=== PATIENT | female | born 1950 | race Caucasian/White ===

== ENCOUNTER 2018-01-10 21:12 | Emergency (ER) | payer MEDICARE, SELFPAY ==
[2018-01-10 21:28] VITALS: BP 116/79; PULSE 112; RESP 18; TEMP 36.6; O2SAT 96; BMI 20.9
--- NOTE | 2018-01-10 21:33 | ED.BACK ---
HPI - Back Pain/Injury General Chief Complaint: Back Pain/Injury Stated Complaint: BACK PAIN S/P FALL Time Seen by Provider: 01/10/18 21:33 Source: patient and family Mode of arrival: ambulatory Limitations: no limitations History of Present Illness HPI Narrative: patient is a 67-year-old female brought in with family member for back/ side/abdominal pain. Patient states that earlier this week she had 2 falls. She states that she slipped on the floor and fell. She states that the 2nd 1 she did hit her head but had no loss of consciousness. She states that since these falls she has had pain on her sides and in her abdomen. And some back pain. Has not tried anything for this prior to arrival. She came in because her son who is a high school coordinator told her that she needed a CT scan of her head and x-rays of her back. She states that she has had problems walking since the fall secondary to the pain. Related Data Home Medications Medication Instructions Recorded Confirmed No Known Home Medications 01/10/18 01/10/18 Review of Systems Constitutional Denies chills, Denies fatigue, Denies fever(s), Denies frequent falls, Denies headache(s) and Denies malaise Eyes Denies diplopia and Denies loss of vision ENT Ears, Nose, Mouth, and Throat: Denies vertigo, Denies dizziness, Denies headache(s) and Denies neck pain Cardiovascular Denies chest pain, Denies syncope, Denies rapid heart rate, Denies edema, Denies irregular heart rhythm, Denies palpitations and Denies dyspnea Respiratory Denies cough and Denies dyspnea Gastrointestinal Gastrointestinal: Denies abdominal pain, Denies change in stool character, Denies constipation, Denies nausea and Denies vomiting Genitourinary Denies dysuria and Denies vaginal discharge Musculoskeletal Reports back pain, Denies myalgias, Denies arthralgias and Denies neck pain Integumentary/Breasts Denies lesions and Denies rash Neurologic Denies vertigo, Denies dizziness, Denies syncope, Denies frequent falls, Denies headache(s), Denies focal weakness and Denies loss of vision Endocrine Denies fatigue and Denies palpitations Hematologic/Lymphatic Denies easy bleeding and Denies easy bruising [facility] Medical History Healthy adult (Acute) Surgical History No pertinent past surgical history (Acute) Social History Smoking Status: Never smoker Exam Initial Vital Signs Initial Vital Signs: Vital Signs Temperature 97.9 F 01/10/18 21:28 Pulse Rate 112 H 01/10/18 21:28 Respiratory Rate 18 01/10/18 21:28 Blood Pressure 116/79 01/10/18 21:28 Pulse Oximetry 96 01/10/18 21:28 Const General: cooperative, comfortable, well groomed and No acute distress Orientation: alert, awake and oriented x3 HENMT Head: normal to inspection, normocephalic and atraumatic Nose: external nose normal Face and sinus: normal facial exam Mouth: oral mucosae normal Eyes Sclera: scleral abnormality bilaterally ( Jaundiced) Resp Effort & Inspection: normal respiratory effort Auscultation: clear to auscultation bilaterally Cardio Rate: tachycardic Rhythm: abnormal rhythm irregularly irregular Heart Sounds: no murmurs Pulses: radial pulses present GI Inspection: non-distended Palpation: soft, No firm and No tender Back/Spine/Pelvis Cervical Spine: No cervical muscular tenderness, No cervical spasm and No cervical spinal tenderness Thoracic/Lumbar Spine: No paraspinal tenderness, No thoraco-lumbar spasm, No thoracic spinal tenderness and No lumbar spinal tenderness Sacroiliac Joints: nontender Skin General: jaundice Wounds: no wounds Neuro General: alert, awake and oriented x3 Extrem General: normal to inspection, full ROM and capillary refill normal Psych Appearance: grossly normal and well kempt Course Orders Ordered: ED Orders 01/10/18 21:38 EKG-12 Lead Stat 01/10/18 21:44 Complete Blood Count AUTO DIFF Stat Comprehensive Metabolic Panel Stat Lipase Stat Partial Thromboplastin Time Stat Pathologist Review (for CBC) Stat Prothrombin Time INR Stat Thyroid Stimulating Hormone Stat Troponin I Stat 01/10/18 22:10 CT head/brain wo con Stat XR lumbar spine 2-3V Stat Discontinued Medications Acetaminophen (Tylenol) 650 mg PO NOW ONE Stop: 01/11/18 01:07 Last Admin: 01/11/18 01:11 Dose: 650 mg Vital Signs - 8 hr 01/10/18 21:28 01/11/18 01:27 Temperature 97.9 F 98.1 F Pulse Rate 112 H 106 H Respiratory Rate 18 18 Blood Pressure 116/79 117/80 Pulse Oximetry 96 97 MDM - Back Pain/Injury Lab Data Attestation: I reviewed the patient's lab results. Result diagrams: 01/10/18 21:44 01/10/18 21:44 Lab Results 01/10/18 01/10/18 01/10/18 Range/Units 21:44 21:44 21:44 WBC 8.0 (4.5-11.0) X10^3/uL RBC 3.07 L (4.0-5.2) X10^6/uL Hgb 10.9 L (12.0-16.0) g/dL Hct 28.5 L (36-46) % MCV 93.1 (80-100) fL MCH 35.6 H (26-34) PG MCHC 38.3 H (30-36) % RDW 18.3 H (11.6-14.8) % Plt Count 127 L (150-400) X10^3/uL Neut % (Auto) 70.0 (50-75) % Lymph % (Auto) 20.8 L (25-40) % [place] % (Auto) 7.4 (3-14) % Eos % (Auto) 0.7 L (2-4) % Baso % (Auto) 1.1 (0-2) % Neut # (Auto) 5600 (2097-9333) /uL Platelet Estimate Decreased on smear RBC Morphology See below Polychromasia 2+ H Spherocytes 3+ H PT 12.3 (10.1-12.7) SECONDS INR 1.1 (0.9-1.3) APTT 35 (26.4-36.2) SECONDS Sodium 144 (137-145) mmol/L Potassium 3.3 L (3.4-5.1) mmol/L Chloride 100 (98-107) mmol/L Carbon Dioxide 30 (22-32) mmol/L BUN 23 H (7-17) mg/dL Creatinine 0.70 (0.52-1.04) mg/dL Estimated GFR > 60.0 (>60) mL/min BUN/Creatinine Ratio 32.9 H (6-22) Glucose 168 H (80-110) mg/dL Calcium 9.7 (8.4-10.2) mg/dL Total Bilirubin 8.8 H (0.2-1.3) mg/dL AST 19 (14-36) IU/L ALT 24 (9-52) IU/L Alkaline Phosphatase 52 (38-126) U/L Troponin I < 0.012 (0.01-0.034) ng/mL Total Protein 7.7 (6.3-8.2) g/dL Albumin 4.7 (3.5-5.0) g/dL Globulin 3.0 (1.7-4.1) g/dL Albumin/Globulin Ratio 1.6 (1.0-2.8) Lipase 67 (23-300) U/L TSH (0.47-4.68) uIU/mL 01/10/18 Range/Units 21:44 WBC (4.5-11.0) X10^3/uL RBC (4.0-5.2) X10^6/uL Hgb (12.0-16.0) g/dL Hct (36-46) % MCV (80-100) fL MCH (26-34) PG MCHC (30-36) % RDW (11.6-14.8) % Plt Count (150-400) X10^3/uL Neut % (Auto) (50-75) % Lymph % (Auto) (25-40) % [place] % (Auto) (3-14) % Eos % (Auto) (2-4) % Baso % (Auto) (0-2) % Neut # (Auto) (2880-2910) /uL Platelet Estimate RBC Morphology Polychromasia Spherocytes PT (10.1-12.7) SECONDS INR (0.9-1.3) APTT (26.4-36.2) SECONDS Sodium (137-145) mmol/L Potassium (3.4-5.1) mmol/L Chloride (98-107) mmol/L Carbon Dioxide (22-32) mmol/L BUN (7-17) mg/dL Creatinine (0.52-1.04) mg/dL Estimated GFR (>60) mL/min BUN/Creatinine Ratio (6-22) Glucose (80-110) mg/dL Calcium (8.4-10.2) mg/dL Total Bilirubin (0.2-1.3) mg/dL AST (14-36) IU/L ALT (9-52) IU/L Alkaline Phosphatase (38-126) U/L Troponin I (0.01-0.034) ng/mL Total Protein (6.3-8.2) g/dL Albumin (3.5-5.0) g/dL Globulin (1.7-4.1) g/dL Albumin/Globulin Ratio (1.0-2.8) Lipase (23-300) U/L TSH 9.76 H (0.47-4.68) uIU/mL Imaging Data CT scan - head: Radiologist's impression: no acute intracranial process identified. Lumbar spine x-ray: Radiologist's impression: vertebral body height loss between 25 and 30% involving L2 which she exhibits superior endplate deformity and lucency suggesting acute compression fracture. No retropulsion. ECG Data Attestation: I personally reviewed and interpreted this ECG as follows: Prior ECG tracings: not available for review Interpretation: atrial fibrillation ventricular rate of 113 Normal axis normal QRS Nonspecific ST T wave changes MDM Narrative Medical decision making narrative: patient here with reported side and abdominal and back pain after what appears to be a mechanical fall couple days ago. X-rays of her lumbar spine do show a compression fracture of L2 vertebrae. She is not tender to palpation on her back over this area. All of her pain seems to be in her flanks. we did discuss her symptoms. I informed her that the head CT would be to evaluate for a fracture or intracranial bleed or another cause of her falling to include a intracranial mass. Informed her that we do not diagnose concussions off of a head CT. After this discussion she did opt to have a head CT. Patient also with other medical problems that she did not come in for today. She is currently in atrial fibrillation with RVR. She states she has never been told this in the past. She is asymptomatic from this. I did tell her that the falls a couple days ago could be from atrial fibrillation in her heart rate being fast. Patient is also visibly jaundiced and also with scleral icterus. She states that she has a blood disorder that makes her like this occasionally. 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 She carries no diagnosis with her. Her labs today also show hyperthyroidism Which could be causing her atrial fibrillation. She is also slightly anemic which is not surprising given the level of her jaundice. She also has hyperbilirubinemia. I had a long discussion with the patient regarding her falls and also the other symptoms and findings that we found today. We did discuss that the atrial fibrillation puts her at a higher risk for stroke and that we do recommend starting on anticoagulation and following up with a school plant consultant for further evaluation. We also discussed the concern of the hyperthyroidism is potentially the cause of her atrial fibrillation. She has no other symptoms concerning for thyroid storm. I also discussed her jaundice and also her hyperbilirubinemia. After all of these discussions the patient did not want to start anticoagulation. She states that she does not have a primary care doctor and probably would not follow up with the primary care doctor given her zoroastrian beliefs. We did discuss her lumbar spine fracture. She declined the offer for pain medication except for Tylenol. She was given the phone number for the orthopedic group here in [facility] as a follow-up. Had a long discussion with her regarding her chronic medical conditions. Informed her that it would be farrell for her to may contact the primary care doctor follow up on these. I did inform her that she has medical conditions that could potentially be life-threatening. She expressed understanding with all of these discussions. She was alert and oriented x3 and in my opinion had capacity to make decisions. These discussions were had with her who is at bedside. Patient was informed that she could return to the emergency department at any point if she needed to. She expressed understanding. Discharge Plan Departure Patient Disposition: Home Clinical Impression: Compression fracture of L2, Atrial fibrillation, Hyperbilirubinemia, Hyperthyroidism, Anemia Discharge Date/Time: 01/11/18 01:25 Interventions: ED Discharge Assessment Last Done: 01/11/18 01:27 Instructions: Vertebral Compression Fracture, Jaundice, DI for Atrial Fibrillation Activity Restrictions/Additional Instructions: you have multiple chronic medical issues that I recommend you may contact with the primary care doctor to follow up on these. Some of these conditions such as atrial fibrillation and hyperthyroidism can be life-threatening. if you desire you can contact the [facility] group at [phone] for a follow-up. You can return to the emergency department at any time for new or worsening symptoms Prescriptions: No Action No Known Home Medications RF: 0
[2018-01-10 21:59] LABS: INR 1.1 (0.9-1.3); Prothrombin Time 12.3 SECONDS (10.1-12.7)
[2018-01-10 22:02] LABS: PTT Partial Thromboplastin Tim 35 SECONDS (26.4-36.2)
[2018-01-10 22:08] LABS: Alanine Aminotransferase 24 IU/L (9-52); Albumin 4.7 g/dL (3.5-5.0); Albumin Globulin Ratio 1.6 (1.0-2.8); Alkaline Phosphatase 52 U/L (38-126); Aspartate Aminotransferase 19 IU/L (14-36); BUN Creatinine Ratio 32.9 (6-22); Bilirubin Total 8.8 mg/dL (0.2-1.3); Blood Urea Nitrogen 23 mg/dL (7-17); Calcium 9.7 mg/dL (8.4-10.2); Carbon Dioxide 30 mmol/L (22-32); Chloride 100 mmol/L (98-107); Estimated Glomerular Filt Rate > 60.0 mL/min (>60); Glucose 168 mg/dL (80-110); HEMOLYSIS < 15 (0-50); Lipase 67 U/L (23-300); Potassium 3.3 mmol/L (3.4-5.1); Sodium 144 mmol/L (137-145); Total Protein 7.7 g/dL (6.3-8.2)
--- NOTE | 2018-01-10 22:10 | DI.CT.S_ITS ---
PROCEDURE: CT HEAD/BRAIN WO CON INDICATIONS: Syncope TECHNIQUE: Noncontrast 4.5 mm thick angled axial sections acquired from the foramen magnum to the vertex, with coronal and sagittal reformats. For radiation dose reduction, the following was used: automated exposure control, adjustment of mA and/or kV according to patient size. COMPARISON: None. FINDINGS: Image quality: Excellent. CSF spaces: Basal cisterns are patent. No extra-axial fluid collections. The ventricles are symmetric in size and shape. Brain: No intracranial bleeds or masses. There is cerebral volume loss for age, with resultant ventricular and sulcal prominence. There are periventricular and deep white matter chronic small vessel ischemic changes. There is intracranial internal carotid artery atherosclerosis. Skull and face: Calvarium and visualized facial bones appear intact, without suspicious lesions. Sinuses: Visualized sinuses and mastoids are clear. IMPRESSION: No acute intracranial process Dictated by: Jermaine Gallego M.D. on 01/11/2018 at 7:00 Approved by: Jermaine Gallego M.D. on 01/11/2018 at 7:09
--- NOTE | 2018-01-10 22:10 | DI.RAD.S_ITS ---
PROCEDURE: XR LUMBAR SPINE 2-3V INDICATIONS: Pain after fall TECHNIQUE: 3 views of the lumbar spine were acquired. COMPARISON: None. FINDINGS: Bones: L2 compression fracture with mild height loss is seen. Remaining vertebral body heights are preserved. There is diffuse facet arthropathy. Mild diffuse lower thoracic and upper lumbar disc degeneration. Mild levocurvature centered at L2-L3. Soft tissues: Overlying bowel gas pattern is nonobstructive a large amount of stool projects in the colon. No suspicious soft tissue calcifications. IMPRESSION: Mild L2 compression fracture, suspected acute. Technically this finding is age-indeterminate in the absence of prior studies; recommend clinical correlation to assess acuity. Dictated by: Jermaine Gallego M.D. on 01/11/2018 at 7:58 Approved by: Jermaine Gallego M.D. on 01/11/2018 at 8:00
[2018-01-10 22:12] LABS: Basophils Percent Auto 1.1 % (0-2); Eosinophils Percent Auto 0.7 % (2-4); Hematocrit 28.5 % (36-46); Hemoglobin 10.9 g/dL (12.0-16.0); Lymphocytes Percent Auto 20.8 % (25-40); Mean Corpuscular HGB Conc 38.3 % (30-36); Mean Corpuscular Hemoglobin 35.6 PG (26-34); Mean Corpuscular Volume 93.1 fL (80-100); Monocytes Percent Auto 7.4 % (3-14); Neutrophils Absolute Auto 5600 /uL (3000-5900); Platelet Count 127 X10^3/uL (150-400); Red Blood Cell Count 3.07 X10^6/uL (4.0-5.2); Red Cell Distribution Width 18.3 % (11.6-14.8)
[2018-01-10 22:23] LABS: Troponin I < 0.012 ng/mL (0.01-0.034)
[2018-01-10 22:32] LABS: Add Manual Diff / Slide Review SLIDE REVIEW
[2018-01-10 22:34] LABS: Platelet Estimate Decreased on smear; Polychromasia 2+; Spherocytes 3+
[2018-01-10 22:48] LABS: Thyroid Stimulating Hormone 9.76 uIU/mL (0.47-4.68)
[2018-01-11] MEDS: ACETAMINOPHEN 325 MG TABLET 650 MG PO (01:11)
[2018-01-11 01:27] VITALS: BP 117/80; PULSE 106; RESP 18; TEMP 36.7; O2SAT 97
== END 2018-01-11 01:25 | disposition home or self-care (01) ==
PROVIDERS: Emergency Provider Emergency Medicine
DX: S32.020A Wedge compression fracture of second lumbar vertebra, initial encounter for closed fracture (principal); I48.91 Unspecified atrial fibrillation; E80.6 Other disorders of bilirubin metabolism; E05.90 Thyrotoxicosis, unspecified without thyrotoxic crisis or storm; D64.9 Anemia, unspecified; W01.0XXA Fall on same level from slipping, tripping and stumbling without subsequent striking against object, initial encounter
CPT/HCPCS: 36591; 70450; 72100; 80053; 83690; 84443; 84484; 85025; 85610; 85730; 93005; 99282; 99285